=== PATIENT | female | born 1980 | race Caucasian/White ===

== ENCOUNTER 2022-02-22 20:18 | Emergency (ER) | payer MEDICAID, OTHER ==
[~2022-02-22] VITALS: Ht 149.9 cm; Wt 65.4 kg
[2022-02-22 20:57] VITALS: BP 103/65
== END 2022-02-23 02:30 | disposition left against medical advice (07) ==
LOC: ER 20:18
DX: Z53.21 Procedure and treatment not carried out due to patient leaving prior to being seen by health care provider (principal)

== ENCOUNTER 2024-06-29 09:22 | Emergency (ER) | payer MEDICAID ==
[~2024-06-29] VITALS: Ht 149.9 cm; Wt 58.2 kg
[2024-06-29 09:32] VITALS: O2SAT 98
[2024-06-29 09:38] VITALS: BP 113/65; PULSE 67; RESP 18; TEMP 37.1; O2SAT 99
[2024-06-29 10:36] LABS: BASOPHILS % 0.5 % (0.0-2.0); EOSINOPHILS % 1.6 % (0.0-5.0); HEMATOCRIT. 39.2 % (36.0-48.0); HEMOGLOBIN. 12.5 g/dL (12.0-16.0); LYMPHOCYTES % 29.9 % (20.0-50.0); MEAN CORPUSCULAR VOLUME 87.5 fL (81.0-99.0); MEAN PLATELET VOLUME 8.1 fl (7.4-10.4); MONOCYTES % 10.1 % (2.0-8.0); NEUTROPHILS % 57.9 % (40.0-76.0); PLATELET 248 x1000/uL (130-400); RED BLOOD CELL COUNT 4.48 mill/uL (4.2-5.4); RED CELL DISTRIBUTION WIDTH 15.9 % (11.6-14.6)
[2024-06-29 10:38] LABS: CHLORIDE 105 mEq/L (98-107); POTASSIUM 4.1 mEq/L (3.5-5.1); SODIUM 139 mEq/L (136-145)
[2024-06-29 10:39] LABS: CALCIUM 8.9 mg/dL (8.7-10.4); CARBON DIOXIDE 27 mEq/L (21-32)
[2024-06-29 10:44] LABS: CREATININE 0.8 mg/dL (0.6-1.0); GLUCOSE 96 mg/dL (70-105); UREA NITROGEN BLOOD 10 mg/dL (9-23)
[2024-06-29 11:09] LABS: TROPONIN I HIGH SENSITIVITY < 4 ng/L (3.0-34)
== END 2024-06-29 10:23 | disposition home or self-care (01) ==
LOC: ER 09:22
DX: R07.89 Other chest pain (principal); Z79.82 Long term (current) use of aspirin; Z88.5 Allergy status to narcotic agent
CPT/HCPCS: 36415; 71045; 80048; 84484; 85025; 85379; 93005; 99285

== ENCOUNTER 2024-11-25 08:33 | Emergency (ER) | payer MEDICAID ==
[~2024-11-25] VITALS: Ht 149.9 cm; Wt 53.0 kg
[2024-11-25 08:35] VITALS: O2SAT 99
[2024-11-25 08:37] VITALS: BP 122/93; PULSE 74; RESP 16; TEMP 36.9; O2SAT 100
[2024-11-25] MEDS ORDERED: METO-293 MT ×2 (08:49→08:51)
[2024-11-25] MEDS ORDERED: ASPI-1154 PO (08:49)
== END 2024-11-25 09:14 | disposition home or self-care (01) ==
LOC: ER 08:33
DX: G44.209 Tension-type headache, unspecified, not intractable (principal); Z88.5 Allergy status to narcotic agent
CPT/HCPCS: 99282; 99283